=== PATIENT | female | born 1975 | race Two or more races ===

== ENCOUNTER 2018-04-25 16:57 | Inpatient (IN) | payer MEDICAID ==
[2018-04-25] MEDS ORDERED: Nalbuphine 20 MG/ML 1 ML Syringe IVPUSH PRN (17:17)
[2018-04-25] MEDS ORDERED: Citric Acid/Sodium Citrate Solution 30 ML Cup PO ONE (17:17)
[2018-04-25] MEDS ORDERED: Ondansetron 4 MG/2 ML SDV IVPUSH PRN ×2 (17:17→19:33)
[2018-04-25] MEDS ORDERED: Metoclopramide 10 MG/2 ML SDV IVPUSH ONE (17:17)
[2018-04-25] MEDS ORDERED: ceFAZolin 2 GM in Premix Bag 1 BAG IV ONE (17:17)
[2018-04-25] MEDS ORDERED: Sodium Chloride 0.9% 10 ML Syringe FLUSH PRN (17:17)
[2018-04-25] MEDS ORDERED: Lactated Ringers 1,000 ML IV SCH (17:30)
[2018-04-25] MEDS ORDERED: Oxytocin/Lactated Ringers 10 UNIT/1,000 ML BAG IV SCH (17:30)
[2018-04-25] MEDS ORDERED: Oxytocin 10 Units/1 ML SDV ONE (18:06)
[2018-04-25] MEDS ORDERED: Ondansetron 4 MG/2 ML SDV ONE (18:06)
[2018-04-25] MEDS ORDERED: Morphine PF 1 MG/ML Amp ONE (18:08)
[2018-04-25] MEDS ORDERED: Bupivacaine 0.5% 30 ML SDV ONE (18:09)
[2018-04-25] MEDS ORDERED: ceFAZolin 1 GM Vial ONE (18:47)
[2018-04-25] MEDS ORDERED: fentaNYL 100 MCG/2 ML SDV ONE (18:51)
[2018-04-25] MEDS ORDERED: Ketorolac 30 MG/ML SDV ONE (19:14)
[2018-04-25] MEDS ORDERED: Meperidine 50 MG/ML Vial IVPUSH ONE (19:33)
[2018-04-25] MEDS ORDERED: fentaNYL 100 MCG/2 ML SDV IVPUSH PRN (19:33)
[2018-04-25] MEDS ORDERED: diphenhydrAMINE 50 MG/ML SDV IVPUSH PRN (19:33)
--- NOTE | 2018-04-25 19:33 | PCM.POSTAN ---
POST ANESTHESIA ASSESSMENT - MENTAL STATUS Mental Status: Alert, Oriented - VITAL SIGNS Pulse Rate: 70 SaO2: 95 Resp Rate: 13 Blood Pressure: 102/67 Temperature: 37.3 C - RESPIRATORY Respiratory Status: Respiratory Rate WNL, Airway Patent, O2 Saturation Stable - CARDIOVASCULAR CV Status: Pulse Rate WNL, Blood Pressure Stable - GASTROINTESTINAL GI Status: No Symptoms - PAIN Pain Score: 0 - POST OP HYDRATION Hydration Status: Adequate & Stable
--- NOTE | 2018-04-25 19:38 | PCM.PREANE ---
Preanesthetic Assessment - Procedure Proposed Procedure: Repeat C Section - Anesthesia/Transfusion/Family Hx Anesthesia History: Prior Anesthesia Reaction (Patient states 18 years ago in [place] she had a general anesthetic and it took 2 days before her body became "un-numb." No problems with [place]ection she had 2[place] ago [place] Other Type of Anesthesia Reaction Comment: numbness Family History of Anesthesia Reaction: No Transfusion History: No Prior Transfusion(s) - Review of Systems General: No Symptoms Pulmonary: No Symptoms Cardiovascular: No Symptoms Gastrointestinal: No Symptoms Neurological: No Symptoms Other: Reports: None - Physical Assessment NPO Status Date: 04/25/18 NPO Status Time: 15:30 Pulse: 90 O2 Sat by Pulse Oximetry: 99 Respiratory Rate: 12 Blood Pressure: 127/76 Temperature: 36.9 C Vital Signs: Last Vital Signs Temp 37.3 C 04/25/18 19:32 Pulse 70 04/25/18 19:32 Resp 13 04/25/18 19:32 BP 102/67 04/25/18 19:32 Pulse Ox 95 04/25/18 19:32 Height: 1.68 m Weight: 85.729 kg ASA Class: 2E Mental Status: Alert & Oriented x3 Airway Class: Mallampati = 2 Dentition: Reports: Normal Dentition Thyro-Mental Finger Breadths: 3 Mouth Opening Finger Breadths: 3 ROM/Head Extension: Full Lungs: Clear to Auscultation, Normal Respiratory Effort Cardiovascular: Regular Rate, Regular Rhythm - Lab Values: Laboratory Last Values WBC 9.12 K/mm3 (3.98-10.04) 04/25/18 17:40 RBC 4.09 M/mm3 (3.98-5.22) 04/25/18 17:40 Hgb 12.5 gm/L (11.2-15.7) 04/25/18 17:40 Hct 37.9 % (34.1-44.9) 04/25/18 17:40 MCV 92.7 fl (79.4-94.8) 04/25/18 17:40 MCH 30.6 pg (25.6-32.2) 04/25/18 17:40 MCHC 33.0 g/dl (32.2-35.5) 04/25/18 17:40 RDW Std Deviation 42.4 fL (36.4-46.3) 04/25/18 17:40 Plt Count 196 K/mm3 (182-369) 04/25/18 17:40 MPV 10.9 fl (9.4-12.3) 04/25/18 17:40 Neut % (Auto) 74.9 % (34.0-71.1) H 04/25/18 17:40 Lymph % (Auto) 16.0 % (19.3-51.7) L 04/25/18 17:40 Hancock % (Auto) 7.6 % (4.7-12.5) 04/25/18 17:40 Eos % (Auto) 1.3 (0.7-5.8) 04/25/18 17:40 Baso % (Auto) 0.1 % (0.1-1.2) 04/25/18 17:40 Neut # (Auto) 6.83 K/mm3 (1.56-6.13) H 04/25/18 17:40 Lymph # (Auto) 1.46 K/mm3 (1.18-3.74) 04/25/18 17:40 Hancock # (Auto) 0.69 K/mm3 (0.24-0.36) H 04/25/18 17:40 Eos # (Auto) 0.12 K/mm3 (0.04-0.36) 04/25/18 17:40 Baso # (Auto) 0.01 K/mm3 (0.01-0.08) 04/25/18 17:40 POC Glucose 106 mg/dL (70-105) H 04/25/18 17:52 Blood Type O POSITIVE 04/25/18 17:40 Gel Antibody Screen Negative 04/25/18 17:40 - Allergies Allergies/Adverse Reactions: Allergies Allergy/AdvReac Type Severity Reaction Status Date / Time amoxicillin Allergy Tachycardia Verified 04/25/18 17:17 codeine Allergy Other Verified 04/25/18 17:17 Penicillins Allergy Tachycardia Verified 04/25/18 17:17 - Blood Blood Available: No Product(s) Available: None - Anesthesia Plan Pre-Op Medication Ordered: None - Acknowledgements Anesthesia Type Planned: Spinal (with duramorph) Pt an Appropriate Candidate for the Planned Anesthesia: Yes Alternatives and Risks of Anesthesia Discussed w Pt/Guardian: Yes Pt/Guardian Understands and Agrees with Anesthesia Plan: Yes PreAnesthesia Questionnaire [employer] History: Reports: Endocrine/Metabolic History: Reports: Diabetes, Gestational - Infectious Disease History Infectious Disease History: Reports: None - SUBSTANCE USE Smoking Status *Q: Never Smoker Second Hand Smoke Exposure: No Recreational Drug Use History: No - CURRENT (IN HOUSE) MEDS Current Meds: Current Medications Diphenhydramine HCl (Benadryl) 25 mg IVPUSH Q6H PRN PRN Reason: Pruritis Fentanyl (Sublimaze) 50 mcg IVPUSH Q5M PRN PRN Reason: Pain Lactated Ringer's (Ringers, Lactated) 1,000 mls @ 125 mls/hr IV ASDIRECTED [facility] Oxytocin/Lactated Ringer's (Pitocin In Lr 10 Units/1,000 Ml) 10 unit in 1,000 mls @ 100 mls/hr IV ASDIRECTED [facility] Meperidine HCl (Demerol) 12.5 mg IVPUSH ONETIME ONE Stop: 04/25/18 19:34 Nalbuphine HCl (Nubain) 10 mg IVPUSH Q2H PRN PRN Reason: pain Ondansetron HCl (Zofran) 4 mg IVPUSH Q4H PRN PRN Reason: Nausea/Vomiting Ondansetron HCl (Zofran) 4 mg IVPUSH ONETIME PRN PRN Reason: Nausea/Vomiting Sodium Chloride (Saline Flush) 10 ml FLUSH ASDIRECTED PRN PRN Reason: Keep Vein Open Discontinued Medications Bupivacaine HCl (Marcaine 0.5%) Confirm Administered Dose 30 ml .ROUTE .STK-MED ONE Stop: 04/25/18 18:10 Cefazolin Sodium (Ancef) Confirm Administered Dose 2 gm .ROUTE .STK-MED ONE Stop: 04/25/18 18:48 Citric Acid/Sodium Citrate (Bicitra Solution) 30 ml PO ONETIME ONE Stop: 04/25/18 17:18 Last Admin: 04/25/18 17:47 Dose: 30 ml Fentanyl (Sublimaze) Confirm Administered Dose 100 mcg .ROUTE .STK-MED ONE Stop: 04/25/18 18:52 Cefazolin Sodium/Dextrose 2 gm (/ Premix) 50 mls @ 100 mls/hr IV ONETIME ONE Stop: 04/25/18 17:46 Ketorolac Tromethamine (Toradol) Confirm Administered Dose 30 mg .ROUTE .STK- MED ONE Stop: 04/25/18 19:15 Metoclopramide HCl (Reglan) 10 mg IVPUSH ONETIME ONE Stop: 04/25/18 17:18 Last Admin: 04/25/18 17:45 Dose: 10 mg Morphine Sulfate (Duramorph Pf) Confirm Administered Dose 1 mg .ROUTE .STK-MED ONE Stop: 04/25/18 18:09 Ondansetron HCl (Zofran) Confirm Administered Dose 4 mg .ROUTE .STK-MED ONE Stop: 04/25/18 18:07 Oxytocin (Pitocin) Confirm Administered Dose 20 unit .ROUTE .STK-MED ONE Stop: 04/25/18 18:07
--- NOTE | 2018-04-25 19:42 | PCM.OPNOTE ---
- General Post-Op/Procedure Note Date of Surgery/Procedure: 04/25/18 Operative Procedure(s): repeat Findings: viable male, weight 6#14, 9/9 APGARS, normal uterus tubes and ovaries Pre Op Diagnosis: prior , labor Post-Op Diagnosis: Same Anesthesia Technique: Spinal Primary Surgeon: Jeannie Pulliam Anesthesia Provider: Thomas Mahan Pipe Insulator: Caity Kenny Fluid Replacement, Intraop: 1,400 Output, Urine Amount: 200 EBL in mLs: 500 Complications: None Condition: Good Free Text/Narrative:: Intake & Output 04/25/18 04/25/18 04/25/18 06:59 14:59 22:59 Intake Total 1000 Balance 1000 The patient was taken to the operating room where epidural anesthesia was dosed to surgical levels without difficulty. The patient was prepped and draped in the usual sterile fashion in the dorsal supine position with a leftward tilt. A Pfannenstiel skin incision was made through the prior with the scalpel and carried through to the underlying layer of fascia. The fascia was incised in the midline and extended laterally using Tolentino scissors. Marcellus clamps were used to elevate the superior aspect of the fascial incision, which was elevated, and the underlying rectus muscles were dissected off bluntly and using Tolentino scissors. Attention was then turned to the inferior aspect of the fascial incision, which in similar fashion was grasped with Marcellus clamps, elevated, and the underlying rectus muscles were dissected off bluntly and using the tolentino. The rectus muscles were dissected in the midline. The peritoneum was entered bluntly; this incision was extended superiorly and inferiorly with good visualization of the bladder. The bladder blade was inserted. The vesicouterine peritoneum was identified and entered sharply using Metzenbaum scissors. This incision was extended laterally and the bladder flap was created digitally. The bladder blade was reinserted. The lower uterine segment was incised in a transverse fashion using the scalpel and with digital traction. Clear fluid was noted. The infant was subsequently delivered by flexing the head to the incision. Body and shoulders followed without difficulty. The cord was clamped and cut. The was subsequently handed to the awaiting chalk machine operator whose presence had been requested.. The placenta was delivered spontaneously intact with a three-vessel cord noted. The uterus was exteriorized and cleared of all clots and debris. The uterine incision was repaired in 2 layers using 0 monocryl. Hemostasis was visualized. Hemostasis was visualized bilaterally. The uterus was returned to the abdomen. The uterine incision was reexamined and it was noted to be hemostatic. The pelvis was copiously irrigated. The fascia was closed with 1 PDS suture, and the skin was closed with 3-0 monocryl. Sponge, lap, and instrument counts were correct x2. The patient was stable at the completion of the procedure and was subsequently transferred to the recovery room in stable condition.
[2018-04-25] MEDS ORDERED: Lactated Ringers 1,000 ML ONE ×2 (19:51)
[2018-04-25] MEDS ORDERED: Docusate Sodium 100 MG Cap PO PRN (19:54)
[2018-04-25] MEDS ORDERED: Witch Hazel Medicated Pads 100/Jar TOP PRN (19:54)
[2018-04-26] MEDS ORDERED: Ibuprofen 600 MG Tab PO PRN (01:30)
[2018-04-26] MEDS: Ketorolac 30 MG/ML SDV IVPUSH SCH ×3 (04:08→16:36)
--- NOTE | 2018-04-26 07:44 | PCM.PNPP ---
- General Info Date of Service: 04/26/18 Functional Status: Reports: Pain Controlled - Review of Systems General: Reports: No Symptoms HEENT: Reports: No Symptoms Pulmonary: Reports: No Symptoms Cardiovascular: Reports: No Symptoms Gastrointestinal: Reports: No Symptoms Genitourinary: Reports: No Symptoms Musculoskeletal: Reports: No Symptoms Skin: Reports: No Symptoms Neurological: Reports: No Symptoms Psychiatric: Reports: No Symptoms - General Info Date of Service: 04/26/18 - Patient Data Vital Signs - Most Recent: Last Vital Signs Temp 36.8 C 04/26/18 03:08 Pulse 66 04/26/18 03:08 Resp 18 04/26/18 06:00 BP 101/53 L 04/26/18 03:08 Pulse Ox 97 04/26/18 06:00 Weight - Most Recent: 85.729 kg I&O - Last 24 Hours: Intake & Output 04/25/18 04/26/18 04/26/18 22:59 06:59 14:59 Intake Total 2850 Output Total 560 485 Balance 2290 -485 Lab Results - Last 24 Hours: Laboratory Results - last 24 hr 04/25/18 04/25/18 04/25/18 Range/Units 17:40 17:40 17:52 WBC 9.12 (3.98-10.04) K/mm3 RBC 4.09 (3.98-5.22) M/mm3 Hgb 12.5 (11.2-15.7) gm/L Hct 37.9 (34.1-44.9) % MCV 92.7 (79.4-94.8) fl MCH 30.6 (25.6-32.2) pg MCHC 33.0 (32.2-35.5) g/dl RDW Std Deviation 42.4 (36.4-46.3) fL Plt Count 196 (182-369) K/mm3 MPV 10.9 (9.4-12.3) fl Neut % (Auto) 74.9 H (34.0-71.1) % Lymph % (Auto) 16.0 L (19.3-51.7) % Vance % (Auto) 7.6 (4.7-12.5) % Eos % (Auto) 1.3 (0.7-5.8) Baso % (Auto) 0.1 (0.1-1.2) % Neut # (Auto) 6.83 H (1.56-6.13) K/mm3 Lymph # (Auto) 1.46 (1.18-3.74) K/mm3 Vance # (Auto) 0.69 H (0.24-0.36) K/mm3 Eos # (Auto) 0.12 (0.04-0.36) K/mm3 Baso # (Auto) 0.01 (0.01-0.08) K/mm3 POC Glucose 106 H (70-105) mg/dL Blood Type O POSITIVE Gel Antibody Screen Negative Med Orders - Current: Current Medications Docusate Sodium (Colace) 100 mg PO BID PRN PRN Reason: Constipation Ibuprofen (Motrin) 600 mg PO Q6H PRN PRN Reason: Mild pain or fever Ketorolac Tromethamine (Toradol) 30 mg IVPUSH Q6H [facility] Stop: 04/26/18 16:01 Last Admin: 04/26/18 04:08 Dose: 30 mg Witch Elsa (Tucks) 1 pad TOP ASDIRECTED PRN PRN Reason: Hemorrhoid pain Discontinued Medications Bupivacaine HCl (Marcaine 0.5%) Confirm Administered Dose 30 ml .ROUTE .STK-MED ONE Stop: 04/25/18 18:10 Last Admin: 04/25/18 18:55 Dose: 20 ml Cefazolin Sodium (Ancef) Confirm Administered Dose 2 gm .ROUTE .STK-MED ONE Stop: 04/25/18 18:48 Citric Acid/Sodium Citrate (Bicitra Solution) 30 ml PO ONETIME ONE Stop: 04/25/18 17:18 Last Admin: 04/25/18 17:47 Dose: 30 ml Diphenhydramine HCl (Benadryl) 25 mg IVPUSH Q6H PRN PRN Reason: Pruritis Last Admin: 04/26/18 04:12 Dose: 25 mg Fentanyl (Sublimaze) Confirm Administered Dose 100 mcg .ROUTE .STK-MED ONE Stop: 04/25/18 18:52 Fentanyl (Sublimaze) 50 mcg IVPUSH Q5M PRN PRN Reason: Pain Cefazolin Sodium/Dextrose 2 gm (/ Premix) 50 mls @ 100 mls/hr IV ONETIME ONE Stop: 04/25/18 17:46 Last Admin: 04/26/18 06:55 Dose: Not Given Lactated Ringer's (Ringers, Lactated) 1,000 mls @ 125 mls/hr IV ASDIRECTED [facility] Oxytocin/Lactated Ringer's (Pitocin In Lr 10 Units/1,000 Ml) 10 unit in 1,000 mls @ 100 mls/hr IV ASDIRECTED [facility] Lactated Ringer's (Ringers, Lactated) Confirm Administered Dose 1,000 mls @ as directed .ROUTE .STK-MED ONE Stop: 04/25/18 19:52 Lactated Ringer's (Ringers, Lactated) Confirm Administered Dose 1,000 mls @ as directed .ROUTE .STAviacomm-MED ONE Stop: 04/25/18 19:52 Ketorolac Tromethamine (Toradol) Confirm Administered Dose 30 mg .ROUTE .ST- MED ONE Stop: 04/25/18 19:15 Meperidine HCl (Meperidine) 12.5 mg IVPUSH ONETIME ONE Stop: 04/25/18 19:34 Last Admin: 04/26/18 06:55 Dose: Not Given Metoclopramide HCl (Reglan) 10 mg IVPUSH ONETIME ONE Stop: 04/25/18 17:18 Last Admin: 04/25/18 17:45 Dose: 10 mg Morphine Sulfate (Duramorph Pf) Confirm Administered Dose 1 mg .ROUTE .STAviacomm-MED ONE Stop: 04/25/18 18:09 Nalbuphine HCl (Nubain) 10 mg IVPUSH Q2H PRN PRN Reason: pain Ondansetron HCl (Zofran) 4 mg IVPUSH Q4H PRN PRN Reason: Nausea/Vomiting Ondansetron HCl (Zofran) Confirm Administered Dose 4 mg .ROUTE .STK-MED ONE Stop: 04/25/18 18:07 Ondansetron HCl (Zofran) 4 mg IVPUSH ONETIME PRN PRN Reason: Nausea/Vomiting Oxytocin (Pitocin) Confirm Administered Dose 20 unit .ROUTE .ST-MED ONE Stop: 04/25/18 18:07 Sodium Chloride (Saline Flush) 10 ml FLUSH ASDIRECTED PRN PRN Reason: Keep Vein Open - Interaction Infant Disposition, : to Nursery Support Person: - Recovery Exam Fundal Tone: Firm Fundal Level: 1 Fingerbreadths Below Umbilicus Fundal Placement: Midline Lochia Amount: Small Lochia Color: Rubra/Red Perineum Description: Intact, Minimal Bruising/Swelling Episiotomy/Laceration: None Bladder Status: Indwelling Catheter in Place Urinary Elimination: Indwelling Catheter - Exam General: Alert, Oriented HEENT: Pupils Equal Neck: Supple Lungs: Clear to Auscultation, Normal Respiratory Effort Cardiovascular: Regular Rate, Regular Rhythm GI/Abdominal Exam: Normal Bowel Sounds, Soft, Non-Tender, No Organomegaly, No Distention, No Abnormal Bruit, No Mass, Pelvis Stable Extremities: Normal Inspection, Normal Range of Motion, Non-Tender, No Pedal Edema, Normal Capillary Refill Skin: Warm, Dry, Intact Wound/Incisions: Healing Well Neurological: No New Focal Deficit Psy/Mental Status: Alert, Normal Affect, Normal Mood - Problem List Review Problem List Initiated/Reviewed/Updated: Yes - My Orders Last 24 Hours: My Active Orders 04/25/18 17:17 Resuscitation Status Routine 04/25/18 17:20 Heart Tones [RC] PER UNIT ROUTINE Vital Signs [RC] PFP 04/25/18 17:40 RAPID PLASMA REAGIN,RPR [CHEM] Routine 04/25/18 19:54 Activity as Tolerated [RC] PER UNIT ROUTINE Vital Signs [RC] Q1HR Docusate Sodium [Colace] 100 mg PO BID PRN Witch Elsa [Tucks] 1 pad TOP ASDIRECTED PRN Assess Lochia [WOMSER] Per Unit Routine Assess Uterine Involution [WOMSER] Per Unit Routine Breast Pump [WOMSER] Per Unit Routine Heat Therapy [OM.PC] PRN Medication Administration Instruction [OM.PC] Routine Perineal Care [OM.PC] Per Unit Routine Sitz Bath [OM.PC] Per Unit Routine 04/26/18 04:00 Ketorolac [Toradol] 30 mg IVPUSH Q6H 04/26/18 19:54 Heat Therapy [OM.PC] PRN 04/26/18 22:00 Ibuprofen [Motrin] 600 mg PO Q6H PRN - Assessment Assessment:: Term . Doing well. Will be discharged tomorrow likely.
--- NOTE | 2018-04-26 08:14 | PCM48HPAN ---
Post Anesthesia Note - EVALUATION WITHIN 48HRS OF ANESTHETIC Vital Signs in Normal Range: Yes Patient Participated in Evaluation: Yes Respiratory Function Stable: Yes Airway Patent: Yes Cardiovascular Function Stable: Yes Hydration Status Stable: Yes Pain Control Satisfactory: Yes Nausea and Vomiting Control Satisfactory: Yes Mental Status Recovered: Yes (doing well. no complains) Pulse Rate: 66 Resp Rate: 19 Temperature: 98.2 F Blood Pressure: 101/53
[2018-04-26] MEDS ORDERED: diphenhydrAMINE 50 MG/ML SDV IVPUSH PRN (10:29)
[2018-04-26] MEDS: Ibuprofen 600 MG Tab PO PRN (22:49)
[2018-04-27] MEDS: Ibuprofen 600 MG Tab PO PRN ×2 (05:12→12:19)
--- NOTE | 2018-04-27 09:19 | PCM.DCSUM1 ---
Discharge Summary - Hospital Course Free Text/Narrative:: Patient underwent a repeat lower uterine segment transverse section on 04/25/2018. She delivered a viable, male infant weighing 6 lbs. 14 oz. with Apgars of 9 and 9. Postoperatively patient has done well. She is ready for discharge. Breast-feeding without problems, ambulating well and desires discharge. Diagnosis: Stroke: No - Discharge Data Discharge Date: 04/27/18 Discharge Disposition: Home, Self-Care 01 Condition: Good - Patient Summary/Data Operative Procedure(s) Performed: repeat - Patient Instructions Diet: Regular Diet as Tolerated (High-fiber nursing. Extra calories and extra calcium is recommended.) Activity: As Tolerated (No lifting greater than 15 pounds or driving a car 1 week. Patient may shower. No intercourse or tampons until seen back.) Driving: Do Not Drive (1 week) Showering/Bathing: May Shower Wound/Incision Care: Keep Operative Site/Wound Site Clean and Dry Notify Provider of: Fever, Increased Pain, Swelling and Redness, Drainage, Nausea and/or Vomiting - Discharge Plan Prescriptions/Med Rec: Acetaminophen [Tylenol] 650 mg PO Q4HR PRN #30 tablet PRN Reason: Pain Home Medications: Home Meds Acetaminophen [Tylenol] 650 mg PO Q4HR PRN #30 tablet 04/27/18 [Rx] Docusate Sodium [Colace] 100 mg PO BID PRN cap 04/27/18 [Rx] Ibuprofen [Motrin] 600 mg PO Q6H PRN tablet 04/27/18 [Rx] Referrals: Jeannie Pulliam MD [Primary Care Provider] - (Return to clinicDr. Pulliam4 weeks.) - Discharge Summary/Plan Comment DC Time >30 min.: No Discharge Summary/Plan Comment: Discharge instructions: 1. Discharge home 2. Diet, activity and follow-up discussed with patient. Recommend nursing diet with increased calories and calcium. 3. Precautions given concern increased pain, bleeding, temperature, signs/ symptoms of DVT/PE. 4. Medications per home medication was printed, discussed with and given to the patient. 5. Return to clinic-Dr. Pulliam-[facility]-4 weeks. Diagnosis: Term -delivered via repeat section Condition: Good - Patient Data Vitals - Most Recent: Last Vital Signs Temp 36.5 C 04/27/18 05:10 Pulse 59 L 04/27/18 05:10 Resp 14 04/27/18 05:10 BP 107/56 L 04/27/18 05:10 Pulse Ox 96 04/27/18 05:10 Weight - Most Recent: 85.729 kg I&O - Last 24 hours: Intake & Output 04/26/18 04/27/18 04/27/18 22:59 06:59 14:59 Output Total 300 700 Balance -300 -700 Lab Results - Last 24 hrs: Laboratory Results - last 24 hr 04/25/18 Range/Units 17:40 RPR Non-reactive (NONREACTIVE) Med Orders - Current: Current Medications Docusate Sodium (Colace) 100 mg PO BID PRN PRN Reason: Constipation Last Admin: 04/26/18 22:49 Dose: 100 mg Ibuprofen (Motrin) 600 mg PO Q6H PRN PRN Reason: Mild pain or fever Last Admin: 04/27/18 05:12 Dose: 600 mg Witch Elsa (Tucks) 1 pad TOP ASDIRECTED PRN PRN Reason: Hemorrhoid pain Discontinued Medications Bupivacaine HCl (Marcaine 0.5%) Confirm Administered Dose 30 ml .ROUTE .STK-MED ONE Stop: 04/25/18 18:10 Last Admin: 04/25/18 18:55 Dose: 20 ml Cefazolin Sodium (Ancef) Confirm Administered Dose 2 gm .ROUTE .STK-MED ONE Stop: 04/25/18 18:48 Citric Acid/Sodium Citrate (Bicitra Solution) 30 ml PO ONETIME ONE Stop: 04/25/18 17:18 Last Admin: 04/25/18 17:47 Dose: 30 ml Diphenhydramine HCl (Benadryl) 25 mg IVPUSH Q6H PRN PRN Reason: Pruritis Last Admin: 04/26/18 04:12 Dose: 25 mg Diphenhydramine HCl (Benadryl) 25 mg IVPUSH Q6H PRN PRN Reason: Itching Stop: 04/26/18 13:00 Last Admin: 04/26/18 10:46 Dose: 25 mg Fentanyl (Sublimaze) Confirm Administered Dose 100 mcg .ROUTE .STK-MED ONE Stop: 04/25/18 18:52 Fentanyl (Sublimaze) 50 mcg IVPUSH Q5M PRN PRN Reason: Pain Cefazolin Sodium/Dextrose 2 gm (/ Premix) 50 mls @ 100 mls/hr IV ONETIME ONE Stop: 04/25/18 17:46 Last Admin: 04/26/18 06:55 Dose: Not Given Lactated Ringer's (Ringers, Lactated) 1,000 mls @ 125 mls/hr IV ASDIRECTED [facility] Oxytocin/Lactated Ringer's (Pitocin In Lr 10 Units/1,000 Ml) 10 unit in 1,000 mls @ 100 mls/hr IV ASDIRECTED [facility] Lactated Ringer's (Ringers, Lactated) Confirm Administered Dose 1,000 mls @ as directed .ROUTE .STK-MED ONE Stop: 04/25/18 19:52 Lactated Ringer's (Ringers, Lactated) Confirm Administered Dose 1,000 mls @ as directed .ROUTE .STK-MED ONE Stop: 04/25/18 19:52 Ketorolac Tromethamine (Toradol) Confirm Administered Dose 30 mg .ROUTE .STK- MED ONE Stop: 04/25/18 19:15 Ketorolac Tromethamine (Toradol) 30 mg IVPUSH Q6H [facility] Stop: 04/26/18 16:01 Last Admin: 04/26/18 16:36 Dose: 30 mg Meperidine HCl (Meperidine) 12.5 mg IVPUSH ONETIME ONE Stop: 04/25/18 19:34 Last Admin: 04/26/18 06:55 Dose: Not Given Metoclopramide HCl (Reglan) 10 mg IVPUSH ONETIME ONE Stop: 04/25/18 17:18 Last Admin: 04/25/18 17:45 Dose: 10 mg Morphine Sulfate (Duramorph Pf) Confirm Administered Dose 1 mg .ROUTE .STK-MED ONE Stop: 04/25/18 18:09 Nalbuphine HCl (Nubain) 10 mg IVPUSH Q2H PRN PRN Reason: pain Ondansetron HCl (Zofran) 4 mg IVPUSH Q4H PRN PRN Reason: Nausea/Vomiting Ondansetron HCl (Zofran) Confirm Administered Dose 4 mg .ROUTE .STK-MED ONE Stop: 04/25/18 18:07 Ondansetron HCl (Zofran) 4 mg IVPUSH ONETIME PRN PRN Reason: Nausea/Vomiting Oxytocin (Pitocin) Confirm Administered Dose 20 unit .ROUTE .[facility]-MED ONE Stop: 04/25/18 18:07 Sodium Chloride (Saline Flush) 10 ml FLUSH ASDIRECTED PRN PRN Reason: Keep Vein Open
== END 2018-04-27 13:05 | disposition home or self-care (01) | DRG 788 ==
LOC: JD.OB 16:57
PROVIDERS: ADMIT Obstetrics & Gynecology; ATTEND Obstetrics & Gynecology
PROC: 10D00Z1 Extraction of Products of Conception, Low, Open Approach (ICD-10-PCS; principal; 2018-04-25)
DX: O34.211 Maternal care for low transverse scar from previous cesarean delivery (principal); N85.8 Other specified noninflammatory disorders of uterus; Z37.0 Single live birth; Z3A.37 37 weeks gestation of pregnancy; O99.62 Diseases of the digestive system complicating childbirth; K21.9 Gastro-esophageal reflux disease without esophagitis; O24.429 Gestational diabetes mellitus in childbirth, unspecified control; Z90.49 Acquired absence of other specified parts of digestive tract; Z88.6 Allergy status to analgesic agent; Z88.1 Allergy status to other antibiotic agents; Z88.0 Allergy status to penicillin; Z79.899 Other long term (current) drug therapy
CPT/HCPCS: 01961; 36415; 59025; 82962; 85025; 86592; 86850; 86900; 86901; 94762; A9270-GY; J0690; J1200; J1885; J2274; J2405; J2590; J2765; J3010; J3490; J7120